=== PATIENT | female | born 1985 | race Caucasian/White ===

== ENCOUNTER 2024-05-19 16:02 | Emergency (ER) | payer BC, SELFPAY ==
[2024-05-19 16:16] VITALS: BP 130/92
[2024-05-19 16:44] LABS: % Basophils 0.7 % (0-2); % Eosinophils 1.1 % (0-6); % Immature Granulocytes 0.2 % (0-0.5); % Lymphocytes 33.5 % (20.5-51.1); % Monocytes 6.5 % (1.7-9.3); Absolute Eosinophils 0.1 10^3/uL (0-0.7); Absolute Lymphocytes 1.8 10^3/uL (1.2-3.4); Absolute Monocytes 0.4 10^3/uL (0.1-0.6); Absolute Neutrophils 3.1 10^3/uL (1.4-6.5); Hematocrit 38.4 % (37.0-47.0); Hemoglobin 13.5 g/dL (12.0-16.0); Mean Corp Hgb Conc. 35.2 g/dL (33.0-37.0); Mean Corpuscular Hgb 30.6 pg (27.0-31.0); Mean Corpuscular Volume 87.1 fL (81.0-99.0); Nucleated Red Blood Cells % 0 %; Platelet Count 268 10^3/uL (130-400); Red Blood Cell Count 4.41 10^6/uL (4.20-5.40); Red Cell Dist. Width 12.2 % (11.5-14.5); White Blood Cell Count 5.4 10^3/uL (4.8-10.8)
[2024-05-19 17:04] LABS: Troponin I < 0.012 ng/ml
[2024-05-19 17:05] LABS: ALT (SGPT) 14 U/L (0-35); AST (SGOT) 21 U/L (14-36); Albumin 4.4 g/dl (3.5-5.0); Alkaline Phosphatase 51 U/L (38-126); Blood Urea Nitrogen 19 mg/dl (7-17); Calcium 9.1 mg/dl (8.4-10.2); Carbon Dioxide 28 mmol/L (22-30); Chloride 103 mmol/L (98-107); Glucose 123 mg/dl (70-99); Potassium 4.2 mmol/L (3.5-5.1); Sodium 138 mmol/L (135-145); Total Bilirubin 0.6 mg/dl (0.2-1.3); Total Protein 7.1 g/dl (6.3-8.2); eGFR > 60.00
[2024-05-19 17:45] VITALS: BP 129/87
[2024-05-19 17:47] VITALS: BMI 20.6
[2024-05-19 18:00] VITALS: BP 109/83
--- NOTE | 2024-05-19 18:17 | ED.GENMED ---
History of Present Illness
General
Chief Complaint: Jaw Pain
Source: patient
Time Seen by Provider: 05/19/24 18:03
History of Present Illness
History of Present Illness:
38-year-old female with past medical history of GERD/hiatal hernia presenting to the emergency department for evaluation of bilateral jaw discomfort which started last night around 8:30 PM while driving home from her daughter's birthday democr[employer] which
was accompanied with nausea (this is now resolved) and some back pain. Patient also noticed 2 episodes of fleeting left-sided chest discomfort but this is now fully resolved. There is multiple family members with heart disease in the family,
patient contacted primary care provider today and was recommended to come to the ER for cardiac workup. At present time patient still notes a mild discomfort to the bilateral jaw/neck area and a discomfort in her back but no other symptoms. due
to her family history patient has a visit already scheduled with nutritionalist this coming July. Social history was otherwise noncontributory. Patient only takes Pepcid [id number] for her GERD however does note she thought her symptoms may be
related to anxiety so did take 1 Xanax last night but without any relief.
Past History
Past History
ED Past Medical History: GERD and Psychiatric
ED Past Surgical History: Other (Thyroid surgery)
Social History
Tobacco: Non-smoker
Alcohol: None
Drug: None
Personal: Single
Living: with family
Review of Systems
Review of Systems
All Other Systems: ROS reviewed and negative except as documented in HPI and ROS
Phy Exam
Physical Exam
Physical Exam:
GENERAL: Alert , in no apparent distress
EYE: clear conjunctiva b/l
HEAD: NCAT
ENT: o/p clr, mmm.
CARDIAC: Regular rate and rhythm, no murmur.
LUNGS: Clear breath sounds bilaterally, no acute respiratory distress, no wheezes/rales/rhonchi
ABDOMEN: Soft, without focal tenderness, no r/g, no cvat
NEUROLOGICAL: Alert and oriented
SKIN: Warm and dry, skin intact.
MUSCULOSKELETAL: No edema, well perfused. Intact and equal pulses to bilateral upper extremity. Well-healing scar to the left upper arm from recent minor procedure for skin cancer removal. No surrounding erythema
PSYCH: Normal and appropriate interaction.
Scores
Heart Failure Risk
Heart Failure Risk Score: Not Applicable
Heart Score for Chest Pain Patients
STEMI patient?: No
History: Slightly or Non-Suspicious
ECG: Normal
Age: </= 45 years
Risk Factors: 1 or 2 Risk Factors
Troponin: </= Normal Limit
Heart Score for Chest Pain Patients: 1
Heart Score Risk: 2.5% MACE over next 6 weeks
Withdrawal Assessment of Alcohol
Withdrawal Assessment Completed?: Not applicable
Course
Orders/Labs/Results
Orders:
Orders
05/19/24 16:03
ECG [Electrocardiogram (*1)] Urgent
Reason for Study: Other
Other Reason for Exam: jaw pain
EKG- Treatment ONCE
05/19/24 16:32
Complete Blood Count/With Diff Urgent
Comprehensive Metabolic Panel Urgent
Troponin I Urgent
05/19/24 18:17
CR Chest - 2 Views Urgent
Comment:
Reason For Exam: chest/back/jaw pain
05/19/24 19:35
Troponin I Urgent
Abnormal Lab Results
05/19/24
16:32
BUN 19 H mg/dl
(7-17)
Glucose 123 H mg/dl
(70-99)
05/19/24 16:32
05/19/24 16:32
Vital Signs
Initial and Last Documented VS:
Initial Vital Signs
Temp Pulse Resp BP Pulse Ox
98.1 F 90 16 130/92 99
05/19/24 16:16 05/19/24 16:16 05/19/24 16:16 05/19/24 16:16 05/19/24 16:16
Last Documented Vital Signs
Temp Pulse Resp BP Pulse Ox
98.1 F 76 18 108/78 96
05/19/24 16:16 05/19/24 20:15 05/19/24 17:45 05/19/24 20:00 05/19/24 20:15
MDM/Problems Addressed
Differential Diagnosis Includes:
GERD/gastritis/hiatal hernia, atypical ACS, less concern for PE/dissection, musculoskeletal etiology, no symptoms to suggest cholecystitis or surgical abdomen
MDM/Problems Addressed:
38-year-old female presenting to the ER for evaluation of bilateral jaw/neck pain, back pain and nausea which started last night, jaw pain is mainly the only symptom that persists presently. Patient is hemodynamically stable and in no acute
distress. Her only risk factor for cardiac disease is her family history. Patient had labs and EKG initiated on arrival. EKG is a sinus rhythm with no ectopy. No ischemic changes. Labs are all reassuring, negative troponin. Will repeat
troponin. Chest x-ray ordered. Anticipate discharge home with continued outpatient management. At this time I do not have a clear etiology for patient's symptoms however doubt any acute emergent pathology.
*Radiology
Radiology exam reviewed: preliminary read by ED provider (Normal chest x-ray)
*Pulse Oximetry
Patient hypoxic: no
*EKG
Interpreted by ED Provider?: Yes
Heart Rate: 94
Rate: normal
Rhythm: sinus
[place]: normal axis
Ischemia: no ischemia
*Prenatal Teacher Interpretation
Rate: normal
Rhythm: sinus
*Critical Care Note
Total Time (30-74mins, 75-104mins- exclusive of procedures): Not Applicable
Patient Management
Escalation/DeEscalation of care consider admission/obs:
Patient's repeat troponin remains negative. Chest x-ray is unremarkable. At this time I do think it is reasonable for patient to be discharged home and follow-up with primary care provider/nutritionalist for further evaluation. Patient is aware of
return precautions to the emergency room.
ED Attending Note
-
Portions of this chart may have been created with voice recognition software.� Occasional wrong word or��sound alike� substitutions may have occurred due to the inherent limitations of voice recognition software.
Discharge Plan
Departure
Patient Disposition: Home (Routine Discharge)
Date of Disposition: 05/19/24
Time of Disposition: 20:12
Patient with high blood pressure during this ER visit?: No
Discharge Problem:
Jaw pain
Instructions: Chest pain - Discharge instructions
Referrals:
Nickolas Wilkinson DO [Family Provider] -
Interventions
Interventions:
*Risk Screen - Suicide Last Done: 05/19/24 17:46
*General Assessment Last Done: 05/19/24 17:46
*Neglect/Abuse Screening Last Done: 05/19/24 17:46
*ED- Fall Risk Assessment Last Done: 05/19/24 17:46
*ED COVID-19 Vaccine History Last Done: 05/19/24 17:46
*Nursing Disposition Last Done: 05/19/24 20:22
ED-EENT Assessment Last Done: 05/19/24 17:48
ED- Cardiac Assessment Last Done: 05/19/24 17:48
Discharge Date and Time
Discharge Date/Time: 05/19/24 20:22
Print Language: [place]
[2024-05-19 19:00] VITALS: BP 104/82
[2024-05-19 20:00] VITALS: BP 108/78
[2024-05-19 20:03] LABS: Troponin I < 0.012 ng/ml
== END 2024-05-19 20:22 | disposition home or self-care (01) ==
LOC: EMR 16:02
PROVIDERS: Emergency Medicine; Physician Assistant Medical; EMERGENCY PHYSICIAN Emergency Medicine; FAMILY PHYSICIAN Family Medicine
DX: R68.84 Jaw pain (principal); K21.9 Gastro-esophageal reflux disease without esophagitis; K44.9 Diaphragmatic hernia without obstruction or gangrene
CPT/HCPCS: 99283; 71046; 80053; 84484; 85025; 93005

== ENCOUNTER → 2024-08-01 10:22 | Outpatient (REF) | payer BC, SELFPAY | LOC: RCS 10:22 | PROVIDERS: ATTENDING PHYSICIAN Internal Medicine Cardiovascular Disease; FAMILY PHYSICIAN Internal Medicine | DX: R07.89 Other chest pain (principal) | CPT/HCPCS: 93017 ==

== ENCOUNTER → 2024-11-21 09:07 | Outpatient (REF) | payer BC, SELFPAY | LOC: RCS 09:07 | PROVIDERS: ATTENDING PHYSICIAN Internal Medicine Cardiovascular Disease; FAMILY PHYSICIAN Internal Medicine | DX: R00.2 Palpitations (principal) | CPT/HCPCS: 93306 ==

== ENCOUNTER → 2025-01-20 09:22 | Outpatient (REF) | payer BC, SELFPAY | LOC: RCS 09:22 | PROVIDERS: ATTENDING PHYSICIAN Internal Medicine Cardiovascular Disease; FAMILY PHYSICIAN Internal Medicine | DX: R00.2 Palpitations (principal) | CPT/HCPCS: 93225; 93226 ==